=== PATIENT | female | born 1950 | race Caucasian/White ===

== ENCOUNTER 2024-05-24 13:45 | Outpatient (CLI) | payer MEDICARE | END 2024-05-24 13:46 | disposition home or self-care (01) | LOC: CSHMRI 13:45 | PROVIDERS: ATTEND Family Medicine | DX: R53.1 Weakness (principal); I63.9 Cerebral infarction, unspecified; Z86.73 Personal history of transient ischemic attack (TIA), and cerebral infarction without residual deficits; R90.82 White matter disease, unspecified | CPT/HCPCS: 36415; 70553; 76376; 82565 ==